=== PATIENT | male | born 1975 | race African-American/Black ===

== ENCOUNTER 2020-08-04 08:03 | Emergency (ER) | payer OTHER ==
[~2020-08-04] VITALS: Ht 172.7 cm; Wt 104.3 kg
[~2020-08-04 08:03] MED LIST: ACETAMINOPHEN-1 EAC1 PO; CYCLOBENZAPRINE5 MG PO; ZANTAC 150MG T150 MG PO
[2020-08-04 08:14] LABS: URINE BILIRUBIN NEGATIVE (Negative); URINE BLOOD 1+ (Negative); URINE CLARITY CLEAR; URINE COLOR YELLOW; URINE GLUCOSE-RANDOM NEGATIVE (Negative); URINE KETONES NEGATIVE (Negative); URINE LEUKOCYTES-REFLEX 1+ (Negative); URINE PROTEIN NEGATIVE (Negative); URINE SPECIFIC GRAVITY 1.025 (1.005-1.030); URINE UROBILINOGEN 0.2 E.U./dl (0.2-1.0)
[2020-08-04 08:16] LABS: URINE NITRITE-REFLEX POSITIVE (Negative)
[2020-08-04 08:27] LABS: CASTS None Seen /LPF (None Seen); CRYSTALS None Seen /LPF (None Seen); SQUAMOUS 0-3 Few /LPF (0-3); URINE RBC 0-2 Rare /HPF (0-2); URINE WBC-REFLEX 0-5 Rare /HPF (0-5)
[2020-08-04] MEDS ORDERED: CIPRO500 M1 PO (08:44)
[2020-08-04 08:45] VITALS: BP 137/82
== END 2020-08-04 08:45 | disposition home or self-care (01) ==
LOC: M.ERS 08:03
PROVIDERS: Family Medicine
DX: N39.0 Urinary tract infection, site not specified (principal)